=== PATIENT | female | born 1985 | race African-American/Black ===

== ENCOUNTER 2023-05-29 10:51 | Emergency (ER) | payer OTHER ==
[~2023-05-29] VITALS: Ht 172.7 cm; Wt 104.0 kg
[2023-05-29 11:02] VITALS: BP 139/80; TEMP 98.7; O2SAT 99
[2023-05-29 11:03] VITALS: PULSE 103; RESP 18
[2023-05-29 12:01] LABS: CLARITY URINE CLOUDY (CLEAR); COLOR URINE YELLOW (YELLOW); GLUCOSE URINE NEGATIVE (NEGATIVE); KETONES URINE NEGATIVE (NEGATIVE); LEUKOCYTE ESTERASE URINE NEGATIVE (NEGATIVE); NITRITE URINE NEGATIVE (NEGATIVE); OCCULT BLOOD URINE 3+ (NEGATIVE); PROTEIN URINE NEGATIVE (NEGATIVE); SPECIFIC GRAVITY URINE 1.013 (1.005-1.030)
[2023-05-29 12:04] LABS: BACTERIA URINE 1+; SQUAMOUS EPITHELIAL CELL URINE 2+ /lpf (RARE/1+); YEAST URINE NONE SEEN
[2023-05-29 12:14] LABS: BASOPHILS % 0.3 % (0.0-2.0); EOSINOPHILS % 0.4 % (0.0-5.0); HEMATOCRIT. 35.2 % (36.0-48.0); HEMOGLOBIN. 11.7 g/dL (12.0-16.0); LYMPHOCYTES % 27.8 % (20.0-50.0); MEAN CORPUSCULAR HEMOGLOBIN 28.3 pg (28.0-32.0); MEAN CORPUSCULAR HGB CONC 33.2 g/dL (31.0-37.0); MEAN CORPUSCULAR VOLUME 85.4 fL (81.0-99.0); MEAN PLATELET VOLUME 7.1 fl (7.4-10.4); MONOCYTES % 6.5 % (2.0-8.0); PLATELET 304 x1000/uL (130-400); RED BLOOD CELL COUNT 4.13 mill/uL (4.2-5.4); RED CELL DISTRIBUTION WIDTH 13.2 % (11.6-14.6); WHITE BLOOD COUNT 8.3 x1000/uL (4.5-11.0)
[2023-05-29 12:19] LABS: RBC URINE 0-2 /hpf (0-2); WBC URINE 0-2 /hpf (0-2)
[2023-05-29 12:27] LABS: CHLORIDE 107 mEq/L (98-107); INDEX HEMOLYSI 1 (1-3); INDEX ICTERIC 1 (1-4); INDEX LIPEMIC 1 (1-3); SODIUM 136 mEq/L (136-145)
[2023-05-29 12:55] LABS: ALANINE AMINOTRANSFERASE 16 IU/L (13-61); ALBUMIN 3.4 g/dL (3.4-5.0); ASPARTATE AMINOTRANSFERASE 9 IU/L (15-37); B-HCG QUANTITATIVE 6142 mIU/mL (<3); BILIRUBIN TOTAL 0.7 mg/dL (0.1-1.0); CALCIUM 8.5 mg/dL (8.5-10.1); CARBON DIOXIDE 23 mEq/L (21-32); CREATININE 0.7 mg/dL (0.6-1.3); GLUCOSE 82 mg/dL (70-105); PROTEIN TOTAL 7.1 g/dL (6.0-8.3); UREA NITROGEN BLOOD 9 mg/dL (7-21)
== END 2023-05-29 13:52 | disposition home or self-care (01) ==
LOC: ER 11:23
DX: O46.91 Antepartum hemorrhage, unspecified, first trimester (principal); Z3A.01 Less than 8 weeks gestation of pregnancy
CPT/HCPCS: 36415; 76830; 76856; 80053; 81003; 81025; 84702; 85025; 86850; 86900; 99284

== ENCOUNTER 2023-05-31 09:53 | Emergency (ER) | payer MEDICAID, OTHER ==
[~2023-05-31] VITALS: Ht 154.9 cm; Wt 95.0 kg
[2023-05-31 10:09] VITALS: BP 127/77; PULSE 58; TEMP 98.6; O2SAT 100
[2023-05-31 11:36] LABS: BASOPHILS % 0.4 % (0.0-2.0); EOSINOPHILS % 0.8 % (0.0-5.0); HEMOGLOBIN. 11.8 g/dL (12.0-16.0); LYMPHOCYTES % 28.1 % (20.0-50.0); MEAN CORPUSCULAR HEMOGLOBIN 27.9 pg (28.0-32.0); MEAN CORPUSCULAR HGB CONC 32.7 g/dL (31.0-37.0); MEAN CORPUSCULAR VOLUME 85.2 fL (81.0-99.0); MEAN PLATELET VOLUME 7.4 fl (7.4-10.4); MONOCYTES % 8.4 % (2.0-8.0); NEUTROPHILS % 62.3 % (40.0-76.0); PLATELET 296 x1000/uL (130-400); RED BLOOD CELL COUNT 4.23 mill/uL (4.2-5.4); RED CELL DISTRIBUTION WIDTH 12.9 % (11.6-14.6); WHITE BLOOD COUNT 7.6 x1000/uL (4.5-11.0)
== END 2023-05-31 13:23 | disposition home or self-care (01) ==
LOC: ER 10:01
DX: N93.9 Abnormal uterine and vaginal bleeding, unspecified (principal)
CPT/HCPCS: 36415; 84702; 85025; 99283

== ENCOUNTER 2023-11-25 16:37 | Emergency (ER) | payer MEDICAID ==
[~2023-11-25] VITALS: Ht 154.9 cm; Wt 91.0 kg
[2023-11-25 16:44] VITALS: O2SAT 99
[2023-11-25 17:10] LABS: CLARITY URINE CLEAR (CLEAR); COLOR URINE YELLOW (YELLOW); GLUCOSE URINE NEGATIVE (NEGATIVE); KETONES URINE NEGATIVE (NEGATIVE); LEUKOCYTE ESTERASE URINE NEGATIVE (NEGATIVE); NITRITE URINE NEGATIVE (NEGATIVE); OCCULT BLOOD URINE NEGATIVE (NEGATIVE); PROTEIN URINE NEGATIVE (NEGATIVE); SPECIFIC GRAVITY URINE 1.023 (1.005-1.030)
[2023-11-25 17:40] LABS: BASOPHILS % 0.4 % (0.0-2.0); EOSINOPHILS % 0.8 % (0.0-5.0); HEMOGLOBIN. 11.5 g/dL (12.0-16.0); LYMPHOCYTES % 33.3 % (20.0-50.0); MEAN CORPUSCULAR HEMOGLOBIN 27.9 pg (28.0-32.0); MEAN CORPUSCULAR VOLUME 87.2 fL (81.0-99.0); MEAN PLATELET VOLUME 7.3 fl (7.4-10.4); MONOCYTES % 8.7 % (2.0-8.0); NEUTROPHILS % 56.8 % (40.0-76.0); PLATELET 331 x1000/uL (130-400); RED BLOOD CELL COUNT 4.13 mill/uL (4.2-5.4); RED CELL DISTRIBUTION WIDTH 13.1 % (11.6-14.6); WHITE BLOOD COUNT 9.4 x1000/uL (4.5-11.0)
[2023-11-25 17:56] LABS: ALANINE AMINOTRANSFERASE 11 IU/L (10-49); ALBUMIN 4.6 g/dL (3.2-4.8); ASPARTATE AMINOTRANSFERASE 16 IU/L (<34); BILIRUBIN TOTAL 0.4 mg/dL (0.1-1.0); CALCIUM 9.1 mg/dL (8.7-10.4); CARBON DIOXIDE 25 mEq/L (21-32); CHLORIDE 106 mEq/L (98-107); CREATININE 0.8 mg/dL (0.6-1.0); GLUCOSE 88 mg/dL (70-105); POTASSIUM 4.2 mEq/L (3.5-5.1); PROTEIN TOTAL 7.5 g/dL (6.0-8.3); SODIUM 136 mEq/L (136-145); UREA NITROGEN BLOOD 13 mg/dL (9-23)
[2023-11-25] MEDS: ONDANSETRON 4MG ODT PO ONE (21:30)
[2023-11-25] MEDS: IBUPROFEN 400MG TABLET PO ONE (21:30)
[2023-11-25 21:42] VITALS: BP 119/62; PULSE 77; RESP 12; TEMP 98.5
[2023-11-25] MEDS ORDERED: ONDA4TAB50 MT (22:14)
== END 2023-11-26 00:15 | disposition home or self-care (01) ==
LOC: ER 16:37
DX: R10.30 Lower abdominal pain, unspecified (principal); D25.9 Leiomyoma of uterus, unspecified; R11.0 Nausea; Z98.890 Other specified postprocedural states
CPT/HCPCS: 80053; 81003; 81025; 84702; 83690; 85025; 36415; 76830; 76856; 93005; 99284; Z7610 ×2